=== PATIENT | male | born 1995 | race Caucasian/White ===

== ENCOUNTER 2017-03-17 10:30 | Emergency (ER) | payer OTHER ==
[2017-03-17 10:56] VITALS: BP 136/62; PULSE 78; RESP 18; TEMP 98; O2SAT 98
[2017-03-17] MEDS ORDERED: LET GEL TOPICAL 1 EA SYR TP ONE (10:56)
[2017-03-17] MEDS ORDERED: LETS SOLN TOPICAL 1 EA SYR TP ONE (10:58)
--- NOTE | 2017-03-17 11:40 | UCPHY ---
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 The patient was at work. The forklift tipped over. He was caged inside. He struck his head. No loss of consciousness. He had a headache which is improving. No neck pain. No numbness or tingling. No weakness. Patient states he has an abrasion to both shins but "they don't hurt." No difficulty with ambulation. Patient also complains of left elbow pain. He states there swelling. His pain is moderate and nonradiating. No numbness or tingling. REVIEW OF SYSTEMS: My complete review of systems is negative except as mentioned in the HPI. Past Medical/Surgical History: Negative Past surgical history: Negative Social history: The patient is employed. He does not smoke. Smoking Status: Never smoked Physical Exam: Vitals noted GENERAL: Well-appearing, in no acute distress, alert. HEAD: patient has a 1 cm laceration on his forehead. There is no palpable mass or crepitus. No palpable foreign body. No other noted hematoma or trauma. EYES: PERRLA, EOMI, normal to inspection. ENT: Airway intact, no dental or oral injury, no malocclusion, no hemotympanum , normal external examination. NECK: The trachea is midline. There is no crepitus. The C-spine is nontender. NEXUS criteria is negative (no midline tenderness, no distracting injury, no altered mental status, no recent alcohol use, no focal neurologic deficit). RESPIRATORY: Clear to auscultation bilaterally, no rales, rhonchi or wheezing. There is no crepitus or palpable rib fractures. CVS: Regular rate and rhythm, no rubs, murmurs, or gallops. ABDOMEN: Soft, nontender, nondistended, normal bowel sounds, no bruising or abrasions. Pelvis: Stable. No tenderness palpation. Hips full range of motion. BACK: Normal to inspection, no spinal tenderness, no spinal step off, no notable bruising or abrasions. SKIN: Normal color, warm, dry. No pallor or diaphoresis. EXTREMITIES: Right upper extremity: Atraumatic. No visible signs of trauma. No tenderness palpation. Neurovascular intact distally. Left upper extremity: Patient has mild swelling over his radial head. Tenderness to palpation. No crepitus. No olecranon tenderness. Patient's distal forearm, wrist, hand humerus are atraumatic with no tenderness palpation. Neurovascularly intact distally.. Right lower extremity: Abrasion right alejo. No bony tenderness palpation. No visible signs of trauma. No tenderness palpation. Neurovascular intact distally. Left lower extremity: Abrasion to left alejo. No bony tenderness palpation. No visible signs of trauma. No tenderness palpation. Neurovascular intact distally. NEURO/PSYCH: Alert and oriented x 3, GCS 15, normal mood and affect, normal motor sensory exam. Constitutional: Initial Vital Signs Temperature (C) 36.6 C 03/17/17 10:52 Heart Rate 78 03/17/17 10:52 Respiratory Rate 18 03/17/17 10:52 Blood Pressure 136/62 H 03/17/17 10:52 O2 Sat (%) 98 03/17/17 10:52 O2 Delivery Mode Room Air Allergies/Adverse Reactions: No Known Allergies Allergy (Unverified 03/17/17 10:51) Home Medications: Medication Instructions Recorded NK [No Known Home Meds] 03/17/17 Medical Decision Making - Diagnostics Imaging Results: Imaging Impressions Elbow X-Ray 03/17/17 11:26 Impression: Normal. ED Course/Re-evaluation: In urgent care discussed possible etiologies with the patient. He consented to his laceration repair an x-ray of his left elbow. X-ray: No acute disease noted. Please look at the dictated report by the radiologist. I reviewed the images personally. Patient had his wound cleaned and repaired. Patient was given warnings prior to leaving. He is given a sling for comfort. He was neurovascularly intact distally post sling placement. He was given follow-up with Orthopedic surgery and workman's Comp. Differential Diagnosis: My differential includes but is not limited to fracture, dislocation, contusion , subarachnoid hemorrhage, subdural hematoma, epidural hematoma, concussion, spinal injury - Data Points Medications Given: Discontinued Medications Octyl Cyanoacrylate (Dermabond) 1 each TP EDNOW ONE Stop: 03/17/17 11:47 Last Admin: 03/17/17 11:48 Dose: 1 each Departure - Departure Disposition: Home, Routine, Self-Care Clinical Impression: Contusion of elbow, left Qualifiers: Encounter type: initial encounter Qualified Code(s): S50.02XA - Contusion of left elbow, initial encounter Head contusion Qualifiers: Encounter type: initial encounter Contusion of head detail: scalp Qualified Code(s): S00.03XA - Contusion of scalp, initial encounter Forehead laceration Qualifiers: Encounter type: initial encounter Qualified Code(s): S01.81XA - Laceration without foreign body of other part of head, initial encounter Condition: Good Instructions: Laceration (ED), Head Injury (ED), Elbow Sprain (ED) Additional Instructions: Wear your sling for comfort. If you continue to have elbow discomfort you need close follow-up with Orthopedics. They may need to repeat your x-ray. Return with increasing headache, vomiting, weakness numbness or any other concerns. Referrals: Work Comp Referral [facility] [Outside] - As per Instructions Jesus Alberto [place] MD [Medical Doctor] - 5-7 days, if not improved - PQRS PQRS Measurement: My PQRS negative my PQRS negative my PQRS negative my PQRS negative 134: Depression screening and followup, [facility] MD-PHQ2 (12 years and older) Over the last 2 weeks, how often have you been bothered by any of the following problems? 1. Feeling down, depressed, or hopeless? 2. Little interest or pleasure in doing things? Patient answered no to both 1 and 2 130: Documentation of medications. Reviewed all patient medications, doses, route and frequency. 226: Do you smoke? No.
[2017-03-17] MEDS ORDERED: SKIN ADHESIVE (DERMABOND) 1 EACH TP ONE (11:46)
== END 2017-03-17 12:13 | disposition home or self-care (01) ==
LOC: CED 10:30
PROC: 0HQ1XZZ Repair Face Skin, External Approach (ICD-10-PCS; principal; 2017-03-17)
DX: S01.81XA Laceration without foreign body of other part of head, initial encounter (principal); S80.811A Abrasion, right lower leg, initial encounter; S80.812A Abrasion, left lower leg, initial encounter; S50.02XA Contusion of left elbow, initial encounter; W24.0XXA Contact with lifting devices, not elsewhere classified, initial encounter; Y99.0 Civilian activity done for income or pay; Y92.69 Other specified industrial and construction area as the place of occurrence of the external cause
CPT/HCPCS: 12011; 73080; 99201; L3670; 99203-PO; G0463-PO